=== PATIENT | male | born 1985 | race Caucasian/White ===

== ENCOUNTER 2018-11-16 09:02 | Emergency (ER) | payer SELFPAY ==
--- NOTE | 2018-11-16 09:50 | EDPHY ---
General Time Seen by Provider: 11/16/18 09:18 Narrative: CLINICAL IMPRESSION: Concussion, post concussive syndrome ASSESSMENT/PLAN: 33-year-old otherwise healthy male presents to the emergency department 3 days after closed head injury to which he is amnestic. Please see HPI for full details. Patient was having persistent headache, nausea with vomiting, intermittent dizziness, and fogginess. He is not anticoagulated reports no other medical history. He was not intoxicated or under the influence of drugs when he fell. CT read by Radiology, negative for acute intracranial hemorrhage or skull fracture. Patient has no focal neurological deficits on exam. Vital signs stable. He was given a work note to excuse him from job duties for 3 days , concussion follow-up recommended, return to play protocol discussed, post concussive in 2nd impact syndromes reviewed, warning signs return to ED sooner alignment discharge. DIFFERENTIAL DX: Differential diagnosis for headache includes but not limited to subarachnoid hemorrhage, concussion, post concussive syndrome, skull fracture, migraine headache, migraine variant headache, tension headache and infectious causes such as meningitis, pharyngitis and sinusitis. ED PROCEDURES: See lab and/or imaging results below ED COURSE: 10:30 a.m.: CT results discussed with Radiology, no acute fracture or intracranial hemorrhage identified. Results reviewed with patient. CHIEF COMPLAINT: Headache, confusion, vomiting following closed head injury HPI: This is a pleasant otherwise healthy 33-year-old male presents to the emergency department with complaints of persistent headaches, confusion, amnesia, and vomiting following a closed head injury 3 days ago. Patient reports he was walking out to his car to get something for his dog from a 2nd floor apartment complex and believes he fell down some stairs. Unfortunately, he is amnestic to the entire event. He reports he could have fallen all the way down 12 concrete steps. His girlfriend apparently came out to look for him 1 hr after he left the apartment and found him sitting in the passenger side of her vehicle. Patient does not remember falling, does not remember crawling to the car, and is unclear how many steps he fell down. He denies any drugs or alcohol on board at the time of the trauma. He had some abrasions and bruising to the left superior forehead. He was not seen by EMS or in an emergency department that night. Over the course of last 2 days he has had headaches, vomiting, continued amnesia, confusion, lethargy, dizziness and occasional vertigo. He reports his vision seems to be"lagging". He reports no neck pain, upper extremity radiculopathy or weakness. No prior neck or back injury. No back pain. 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 He notes his symptoms are worse when he is up and trying to do things at work or at home. He reports 3 prior concussions, most recently over a year ago. He has had 1 CT scan in the past which revealed "bleeding"but did not require surgical intervention or neurosurgery consultation.. Patient's brother is a level 1 trauma center trauma surgeon in [place] and had recommended the patient come to the ED for imaging. Patient is otherwise healthy, not anticoagulated. 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 Eyes: No discharge, vision change ENT: No sore throat, congestion, ear pain. Cardiovascular: No chest pain, no palpitations. Respiratory: No cough, no shortness of breath. Gastrointestinal: No abdominal pain, positive for vomiting, no diarrhea. Genitourinary: No hematuria, dysuria, flank pain, pelvic pain Musculoskeletal: No back pain, joint swelling, joint pain, myalgias. Skin: No rashes, color change. Neurological: Positive for headache, dizziness, weakness. PHYSICAL EXAM: General Appearance: Alert, oriented, appropriate, cooperative, NAD, well hydrated, non-toxic appearing, VSS, no hypoxia, seems distressed about his symptoms HEENT: TMs are clear bilaterally no perforation or FB, no injection, no evidence of serous or mucopurulent otitis. No hemotympanum or Blackmon sign Oropharynx clear is no erythema or exudates, no tonsillar hypertrophy or asymmetry. Dentition without abnormality. Superficial abrasions noted to left superior forehead and temporal region. No scalp deformity or step-off. Eyes: PERRLA, no acute vision change, nystagmus, swelling, discharge, pain or photosensitivity. Conjunctiva pink, no pallor or injection Neck: Supple, nontender, no lymphadenopathy, no midline pain, FROM, no meningismus. Respiratory: There are no retractions, lungs are clear to auscultation. No chest wall pain to palpation Cardiac: Regular rate and rhythm, no murmurs or gallops. Gastrointestinal: Abdomen is soft, nontender. Neurological: Alert and oriented x 3, CN 2-12 grossly intact, normal gait no ataxia, DTR's intact, normal sensation and strength Skin: Warm, dry, no rashes, no nodules on palpation. Musculoskeletal: Extremities are symmetrical, full range of motion, no tenderness, deformity, swelling, or erythema. MEDICAL DECISION MAKING: Patient was seen independently. Secondary supervising physician at time of evaluation was Dr. Styles. Diagnosis: Concussion, post concussive syndrome. New, requires workup Summary: See Assessment and Plan for summary of ED visit Independent visualization of images, tracing, or specimens: Yes. Decision to obtain medical records or history from someone other than the patient: No Review / Summarize previous medical records: None available Discussed patient with another provider: Radiologist Patient Progress: Stable. - History Smoking Status: Never smoked - Objective Vital Signs: Initial Vital Signs Temperature (C) 36.7 C 11/16/18 09:06 Heart Rate 99 11/16/18 09:06 Respiratory Rate 18 11/16/18 09:06 Blood Pressure 143/89 H 11/16/18 09:06 O2 Sat (%) 99 11/16/18 09:06 O2 Delivery Mode Room Air Allergies/Adverse Reactions: No Known Allergies Allergy (Unverified 01/03/19 09:11) Home Medications: Medication Instructions Recorded NK [No Known Home Meds] 11/16/18 Departure - Departure Disposition: Home, Routine, Self-Care Clinical Impression: Post concussive syndrome Condition: Good Instructions: Concussion (ED), Post Concussion Syndrome (ED) Additional Instructions: DISCHARGE INSTRUCTIONS FROM YOUR DOCTOR Thank you for visiting our emergency department today. Please keep in mind that discharge from the emergency department does not mean that there is nothing wrong - it simply means that we have not identified an emergency condition that requires further evaluation or treatment in the hospital. You should always plan to follow up with primary care for re-evaluation of your condition in the next 2-3 days. If you have been referred to a specialist, please call as soon as possible (today or tomorrow) to schedule your follow up appointment at the appropriate time. [CT SCAN OF YOUR HEAD SHOWED NO EVIDENCE OF ACUTE FRACTURE OR INTRACRANIAL HEMORRHAGE. YOUR SYMPTOMS ARE LIKELY DUE TO POST CONCUSSIVE SYNDROME. PLEASE FOLLOWUP WITH A PRIMARY CARE DOCTOR IN 24-48 HOURS. IF YOU DO NOT HAVE A PRIMARY CARE, A REFERRAL WAS GIVEN. YOU CAN ALSO CONTACT THE [facility] THEY HAVE AN EXCELLENT CONCUSSION MANAGEMENT PROGRAM. PLEASE AVOID TV, COMPUTERS, TEXTING, VIDEO GAMES, SCREEN TIME AND CONTACT SPORTS UNTIL YOU ARE CLEARED BY A PRIMARY CARE. WE HAVE ALSO INCLUDED OUR GRADUAL RETURN TO PLAY PROTOCOL A GUIDELINE BUT DEFINITIVE RETURN TO ABOVE MENTIONED ACTIVITIES SHOULD COME FROM YOUR PCP. RETURN TO THE ER SOONER FOR WORSENING OR SEVERE HEADACHES, SEIZURES, ALTERED MENTAL STATUS, VOMITING, SEVERE GRADUAL [id number] PROTOCOL PATIENT MUST BE SYMPTOM FREE FOR 24 HOURS BEFORE PROGRESSING TO THE NEXT STEP. IF PATIENT HAS SYMPTOMS DURING STEP'S 2-6, STOP ACTIVITY AND RETURN PREVIOUS STEP. PATIENT CAN NOT PROGRESS TO NEXT STEP UNLESS CURRENT STEP CAN BE COMPLETED WITH OUT ANY SYMPTOMS (IE HEADACHE, DIZZINESS, CONFUSION...) BRIGHT LIGHTS, TV, COMPUTERS, IPAD'S, MUSIC, READING CAN TRIGGER OR WORSEN CONCUSSION SYMPTOMS THUS SHOULD BE AVOIDED OR USED IN MODERATION. NO CONTACT SPORTS UNTIL YOU ARE CLEARED BY YOUR PRIMARY CARE PHYSICIAN. STEP 1. NO SAME DAY RETURN TO PLAY, REST ONLY , DO NOT PROCEED TO STEP 2 UNTIL ALL SYMPTOMS HAVE RESOLVED STEP 2. LIGHT AEROBIC EXERCISE (IE WALKING, SWIMMING OR STATIONARY CYCLING), WHILE KEEPING INTENSITY < 70% MAX HEART RATE STEP 3. SPORT-SPECIFIC EXERCISE (IE SKATING DRILLS IN ICE HOCKEY-NO PASSING, RUNNING DRILLS IN SOCCER-NO PASSING), NO HEAD IMPACT ACTIVITIES STEP 4. NON-CONTACT TRAINING, WITH PROGRESSION TO MORE COMPLEX DRILLS (IE PASSING DRILLS) NO HEAD IMPACT ACTIVITIES STEP 5. FULL-CONTACT PRACTICE AFTER GETTING MEDICAL CLEARANCE STEP 6. RETURN TO GAME PLAY THIS WAS BASED FROM: CONSENSUS STATEMENT ON CONCUSSION IN SPORT: THE 4TH INTERNATIONAL CONFERENCE ON CONCUSSION IN SPORT HELD IN [place], SEP 2012. BR J SPORTS MED. 2013;47(5):250- 258] People present with illnesses and injuries in different ways, and it is always possible that we have missed something. You may always return for re-evaluation if symptoms worsen or if they are not improving or if you develop new/different symptoms. Again, thank you for choosing our emergency department. We hope that you feel better. Referrals: NONE *PRIMARY CARE P,. [Primary Care Provider] - As per Instructions Feroz Gonzalez MD [[facility] Primary Care Provider] - As per Instructions Stand Alone Forms: Work Excuse
[2018-11-16 10:48] VITALS: BP 118/79
== END 2018-11-16 10:47 | disposition home or self-care (01) ==
DX: F07.81 Postconcussional syndrome (principal)